=== PATIENT | female | born 1990 | race Hispanic/Latino ===

== ENCOUNTER 2022-03-08 09:14 | Day surgery (SDC) | payer MEDICAID ==
[~2022-03-08] VITALS: Ht 160 cm; Wt 187.3 kg
[~2022-03-08 09:14] MED LIST: AMLO-258 PO; BUPR200T8 PO; HYDR-4153 PO; IRBE300T18 PO; METF-444 PO; MULT-1367 PO
[2022-03-08] MEDS ORDERED: 0.9%NACL 1000ML 1,000 ML IV ONE (09:16)
[2022-03-08 09:47] VITALS: BP 141/95
[2022-03-08] MEDS ORDERED: LIDOCAINE PF 100MG/5ML (2%) SYRINGE 5ML ONE (12:23)
[2022-03-08] MEDS ORDERED: PROPOFOL 10 MG/ML 20ML VIAL IV ONE (12:23)
[2022-03-08] MEDS ORDERED: SUCCINYLCHOLINE CHLORIDE 20 MG/ML 10 ML VIAL ONE (12:23)
[2022-03-08 12:30] VITALS: BP 124/84
[2022-03-08 12:35] VITALS: BP 146/89
[2022-03-08 12:40] VITALS: BP 122/58
== END 2022-03-08 13:20 | disposition home or self-care (01) ==
LOC: DAH 09:14 → ENDO 09:14
PROVIDERS: ATTEND Surgery
DX: R12 Heartburn (principal); K29.50 Unspecified chronic gastritis without bleeding; K20.80 Other esophagitis without bleeding; E66.01 Morbid (severe) obesity due to excess calories; I10 Essential (primary) hypertension; E11.9 Type 2 diabetes mellitus without complications; F41.9 Anxiety disorder, unspecified; F32.A Depression, unspecified; Z79.01 Long term (current) use of anticoagulants; Z98.890 Other specified postprocedural states; Z79.899 Other long term (current) drug therapy; Z98.84 Bariatric surgery status; Z80.0 Family history of malignant neoplasm of digestive organs; Z72.89 Other problems related to lifestyle; Z68.45 Body mass index [BMI] 70 or greater, adult
CPT/HCPCS: 36415; 43239; 82948; 84703; 87635; 88305; 88342; A4215 ×2; A4221; A4222; A4223; A4606; A4620; A4663; C9803; J0330; J3490 ×2; J7030; J2001; J2704